=== PATIENT | male | born 1950 | race Caucasian/White ===

== ENCOUNTER 2023-12-16 14:37 | Outpatient (CLI) | payer MEDICARE, OTHER | END 2023-12-16 23:59 | disposition home or self-care (01) | LOC: CARD DIAG 14:37 | PROVIDERS: ATTEND Family Medicine | DX: I08.8 Other rheumatic multiple valve diseases (principal); I10 Essential (primary) hypertension | CPT/HCPCS: 93306 ==

== ENCOUNTER 2024-08-15 14:57 | Outpatient (CLI) | payer MEDICARE, OTHER | END 2024-08-15 23:59 | disposition home or self-care (01) | LOC: MRI02 14:57 | PROVIDERS: ATTEND Nurse Practitioner | DX: M50.13 Cervical disc disorder with radiculopathy, cervicothoracic region (principal); M47.812 Spondylosis without myelopathy or radiculopathy, cervical region; M48.02 Spinal stenosis, cervical region; M77.8 Other enthesopathies, not elsewhere classified; M75.102 Unspecified rotator cuff tear or rupture of left shoulder, not specified as traumatic; M75.81 Other shoulder lesions, right shoulder; M43.12 Spondylolisthesis, cervical region; M25.80 Other specified joint disorders, unspecified joint; M47.23 Other spondylosis with radiculopathy, cervicothoracic region; M43.16 Spondylolisthesis, lumbar region; M19.011 Primary osteoarthritis, right shoulder; M48.03 Spinal stenosis, cervicothoracic region | CPT/HCPCS: 72141; 73221 ==